=== PATIENT | female | born 1980 | race Caucasian/White ===

== ENCOUNTER 2020-12-04 13:39 | Emergency (ER) | payer SELFPAY ==
[~2020-12-04] VITALS: Ht 154.9 cm; Wt 49.0 kg
--- NOTE | 2020-12-04 14:09 | NUR ---
at bedside for assessment
[2020-12-04] MEDS ORDERED: IV NORMAL SALINE 1000 ML BAG IV ONE (14:15)
[2020-12-04 14:37] LABS: HEMATOCRIT 37.6 % (31.2-41.9); MEAN CORPUSCULAR HEMOGLOBIN 31.5 uug (24.7-32.8); MEAN CORPUSCULAR VOLUME 92.5 fL (75.5-95.3); PLATELET COUNT (AUTO) 269 K/uL (179-408)
[2020-12-04 14:39] LABS: *BILIRUBIN,URIN NEGATIVE (NEGATIVE); *BLOOD, URINE NEGATIVE (NEGATIVE); *CLARITY,URINE CLEAR (CLEAR); *COLOR,URINE LIGHT YELLOW (YELLOW); *KETONES,URINE NEGATIVE (NEGATIVE); *UROBILINOGEN,URINE 0.2 E.U./dl (NORMAL); LEUKOCYTE ESTERASE ,URINE NEGATIVE (NEGATIVE); NITRITE, URINE NEGATIVE (NEGATIVE); UGLUCOSE NEGATIVE (NEGATIVE)
[2020-12-04 14:42] LABS: *URINE HCG, QUAL NEGATIVE (NEGATIVE)
[2020-12-04 14:44] LABS: CREATININE 0.7 mg/dL (0.6-1.3); POTASSIUM 4.2 mmol/L (3.5-5.1)
[2020-12-04 14:50] LABS: BILIRUBIN,TOTAL 0.3 mg/dL (0.2-1.0); TOTAL PROTEIN, SERUM 7.7 g/dL (6.4-8.2)
[2020-12-04] MEDS ORDERED: IOHEXOL 300MG/ML 100 ML INFUS..BTL ONE (15:01)
--- NOTE | 2020-12-04 15:23 | NUR ---
Patient going down to CT at this time, complaints of painful urination that has lasted 1 full month and unresolved with 7 days of bactrim antibiotic
--- NOTE | 2020-12-04 15:45 | NUR ---
female nurse noted at bedside with tree and shrub technician at this time
--- NOTE | 2020-12-04 16:07 | NUR ---
US noted leaving bedside at this time
[2020-12-04] MEDS ORDERED: POLY17PO4 PO (16:20)
[2020-12-04] MEDS ORDERED: MAGN296S70 PO (16:20)
--- NOTE | 2020-12-04 16:50 | NUR ---
Patient discharged to home in stable condition. Written and verbal after care instructions given. Patient verbalizes understanding of instructions. Stressed follow up or return to ER for worsening s/s.
[2020-12-06 16:06] LABS: *GC NAA Negative (Negative); *TRIC.VAG. NAA Negative (Negative)
== END 2020-12-04 17:00 | disposition home or self-care (01) ==
LOC: ER 13:44
DX: R10.32 Left lower quadrant pain (principal); K59.00 Constipation, unspecified; R35.0 Frequency of micturition; Z87.440 Personal history of urinary (tract) infections
CPT/HCPCS: 36415; 74160; 76856; 80053; 81003; 84703; 85025; 87491; 96360; 99285; Q9967; A4663; J7030